=== PATIENT | male | born 1995 | race Hispanic/Latino ===

== ENCOUNTER 2018-09-21 22:16 | Emergency (ER) | payer SELFPAY ==
[~2018-09-21] VITALS: Ht 170.2 cm; Wt 65.8 kg
== END 2018-09-22 00:19 | disposition home or self-care (01) ==
LOC: ED 22:16
DX: R51 Headache (principal); D23.30 Other benign neoplasm of skin of unspecified part of face
CPT/HCPCS: 70450; 99284-25